=== PATIENT | female | born 1980 | race Caucasian/White ===

== ENCOUNTER 2016-11-14 20:41 | Emergency (ER) | payer OTHER ==
[~2016-11-14] VITALS: Ht 174 cm; Wt 59.2 kg
[~2016-11-14 20:41] MED LIST: APRITAB PO; DIFL150T PO; METR-1 PO; VALA1TAB PO
[2016-11-14 20:51] VITALS: BP 141/79; PULSE 104; RESP 18; TEMP 98.6; O2SAT 100
[2017-01-18] MEDS ORDERED: FAMV250T PO (16:11)
[2017-01-18] MEDS ORDERED: MACR100C2 PO (16:11)
[2017-01-19] MEDS ORDERED: ACYC400T PO (08:54)
== END 2016-11-14 22:08 | disposition left against medical advice (07) ==
LOC: PHED 20:41
DX: N93.9 Abnormal uterine and vaginal bleeding, unspecified (principal); Z53.21 Procedure and treatment not carried out due to patient leaving prior to being seen by health care provider
CPT/HCPCS: 99281

== ENCOUNTER 2016-12-06 12:38 | Emergency (ER) | payer OTHER ==
[~2016-12-06] VITALS: Ht 170.2 cm; Wt 58.8 kg
[2016-12-06 12:49] VITALS: BP 141/72; PULSE 106; RESP 20; TEMP 98.7; O2SAT 97
--- NOTE | 2016-12-06 13:14 | PD ---
HPI Chief Complaint: Skin Problem Time Seen by Provider: 13:11 Travel History International Travel<30 days: No Contact w/Intl Traveler<30days: No Traveled to known affect area: No History of Present Illness HPI 36-year-old female presents to the ED for evaluation of pruritus of the hairline at the nape of the neck. Onset this morning. Patient states that she noticed multiple red bumps on her child and has been experiencing itching in the nape of the neck since. She states that they were at a friend's house yesterday who feeds many cats in the neighborhood. She thinks that her son's bumps may have come from there. She states that she took a shower before coming to the ED and that did not worsen or improve her symptoms. She denies skin lesions, headaches, fevers, cold symptoms, abdominal pain, nausea, vomiting. Denies chronic health problems, takes no daily medications. No treatment at home. PFSH Past Medical History Arthritis: No Asthma: No Autoimmune Disease: No Blood Disorders: No Anxiety: Yes Depression: Yes Heart Rhythm Problems: No Cancer: No Cardiovascular Problems: No High Cholesterol: No Chemotherapy: Yes Chest Pain: No Congestive Heart Failure: No COPD: No Cerebrovascular Accident: No Diabetes: No Diminished Hearing: No Endocrine: Yes Gastrointestinal Disorders: Yes GERD: No Genitourinary: Yes (Herpes) Headaches: No Hiatal Hernia: No Immune Disorder: No Implanted Vascular Access Dvce: Yes Kidney Stones: No Musculoskeletal: No Neurologic: No Psychiatric: Yes (depression, alcoholism ) Reproductive: No Respiratory: No Immunizations Current: Yes Migraines: No Radiation Therapy: No Renal Failure: No Seizures: No Shingles: No Sickle Cell Disease: No Sleep Apnea: No Thyroid Disease: No Ulcer: No Tetanus Vaccination: > 5 Years Influenza Vaccination: No ?: Unknown LMP: 2.5 weeks ago : 2 Para: 1 Miscarriage: 0 : 1 Past Surgical History Abdominal Surgery: No AICD: No Arteriovenous Shunt: No Body Medical Devices: BREAST IMPLANTS Cardiac Surgery: No Ear Surgery: No Endocrine Surgery: No Eye Surgery: No Gynecologic Surgery: No Insulin Pump: No Joint Replacement: No Oral Surgery: No Pacemaker: No Thoracic Surgery: No Other Surgery: Yes (BREAST AUGMENTATION) Social History Alcohol Use: Yes (Social) Tobacco Use: Yes Substance Use: No Allergies-Medications (Allergen,Severity, Reaction): Coded Allergies: Macrobid (Verified Allergy, Severe, 12/06/16) Bactrim (Verified Allergy, Unknown, 12/06/16) Codeine (Verified Allergy, Unknown, Hives, 12/06/16) Reported Meds & Prescriptions Reported Meds & Active Scripts Active No Active Prescriptions or Reported Medications Review of Systems Except as stated in HPI: all other systems reviewed are Neg Physical Exam Narrative GENERAL: Well-nourished, well-developed patient. SKIN: Warm and dry. A thorough survey of the skin reveals excoriations in the hairline at the nape of the neck. No other lesions noted. There is some mild bruising on the posterior aspect of the left thigh. Again no erythema, vesicles , or maculopapules noted. HEAD: Normocephalic. EYES: No scleral icterus. No injection or drainage. NECK: Supple, trachea midline. No JVD or lymphadenopathy. CARDIOVASCULAR: Regular rate and rhythm without murmurs, gallops, or rubs. RESPIRATORY: Breath sounds equal bilaterally. No accessory muscle use. GASTROINTESTINAL: Abdomen soft, non-tender, nondistended. MUSCULOSKELETAL: No cyanosis, or edema. BACK: Nontender without obvious deformity. No CVA tenderness. Data Data Last Documented VS Vital Signs Date Time Temp Pulse Resp B/P Pulse Ox O2 Delivery O2 Flow Rate FiO2 12/06/16 12:49 98.7 106 20 141/72 97 Orders Diphenhydramine (Benadryl) (12/06/16 13:30) MDM Medical Decision Making Medical Screen Exam Complete: Yes Emergency Medical Condition: Yes Differential Diagnosis pruritis versus insect bite versus contact dermatitis versus lice versus other Narrative Course 36-year-old female presents to the ED for evaluation of pruritus of the hairline at the nape of the neck. Onset this morning. Patient states that she noticed multiple red bumps on her child and has been experiencing itching in the nape of the neck since. She states that they were at a friend's house yesterday who feeds many cats in the neighborhood. She thinks that her son's bumps may have come from there. She denies skin lesions, headaches, fevers, cold symptoms, abdominal pain, nausea, vomiting. Vitals reviewed. Thorough evaluation of the skin reveals excoriations in the hairline of the posterior neck. No other lesions noted. There is some mild bruising on the posterior aspect of the left thigh. Again no erythema, vesicles, or maculopapules noted. I cursorily examined the patient's son skin. There are lesions consistent with bedbugs. Suspect her itching may be psychosomatic. She was administered 25 mg of Benadryl. She was instructed to continue Benadryl as needed for itching. She was cautioned not to use topical and oral Benadryl concurrently. She is instructed to follow-up with her primary care provider. She indicated understanding of instructions and is amenable to plan of care. She is stable and discharged home. Diagnosis Primary Impression: Generalized pruritus Referrals: Primary Care Physician Patient Instructions: General Instructions, Itchy Skin (ED) Additional Instructions: Rest, hydrate. Take cool showers to avoid worsening of itching. Take either Benadryl by mouth or apply topical Benadryl to areas that itch. Do not use both medications! Follow-up with the primary care provider. Return to the ED for any urgent or emergent medical condition. Scripts No Active Prescriptions or Reported Meds Disposition: 01 DISCHARGE HOME Condition: Stable Suzy Mcgowan Dec 06, 2016 13:14
[2016-12-06] MEDS ORDERED: diphenhydrAMINE HCL 25 MG CAP PO ONE (13:30)
[2017-01-18] MEDS ORDERED: MACR100C2 PO (16:11)
[2017-01-18] MEDS ORDERED: FAMV250T PO (16:11)
[2017-01-19] MEDS ORDERED: ACYC400T PO (08:54)
== END 2016-12-06 13:40 | disposition home or self-care (01) ==
LOC: PHEFT 12:38
DX: L29.8 Other pruritus (principal); Z72.0 Tobacco use; Z87.19 Personal history of other diseases of the digestive system; Z87.42 Personal history of other diseases of the female genital tract; Z86.59 Personal history of other mental and behavioral disorders
CPT/HCPCS: 99282

== ENCOUNTER 2017-09-29 11:08 | Emergency (ER) | payer OTHER ==
[~2017-09-29 11:08] MED LIST changes: +ACYC400T PO; -APRITAB PO; +CLIN2CRE5 VAGINAL; -DIFL150T PO; +FLUC150T PO; -METR-1 PO; -VALA1TAB PO
[2017-09-29 11:35] VITALS: BP 138/71; PULSE 110; RESP 18; TEMP 98.3; O2SAT 100
--- NOTE | 2017-09-29 11:59 | PD ---
HPI Chief Complaint: GI Complaint Time Seen by Provider: 11:37 Travel History International Travel<30 days: No Contact w/Intl Traveler<30days: No Traveled to known affect area: No History of Present Illness HPI 37yo F with PMH of anxiety presents to the ED with c/o pulling something out of her anus. Said she was in the shower and pull something that had eyes. Pt said she had nausea and vomiting only in the mornings for 2 months. Has chronic abdominal pain but nothing new. Started having nonbloody diarrhea today. Denies any fever, chest pain, sob, dysuria, hematuria, vaginal complaints, recent traveling. Said she stopped her anxiety medication a few days ago. PFSH Past Medical History Arthritis: No Asthma: No Autoimmune Disease: No Blood Disorders: No Anxiety: Yes Depression: Yes Heart Rhythm Problems: No Cancer: No Cardiovascular Problems: No High Cholesterol: No Chemotherapy: Yes Chest Pain: No Congestive Heart Failure: No COPD: No Cerebrovascular Accident: No Diabetes: No Diminished Hearing: No Endocrine: Yes Gastrointestinal Disorders: Yes GERD: No Genitourinary: Yes (Herpes) Headaches: No Hiatal Hernia: No Immune Disorder: No Implanted Vascular Access Dvce: Yes Kidney Stones: No Musculoskeletal: No Neurologic: No Psychiatric: Yes (depression, alcoholism ) Reproductive: No Respiratory: No Immunizations Current: Yes Migraines: No Radiation Therapy: No Renal Failure: No Seizures: No Shingles: No Sickle Cell Disease: No Sleep Apnea: No Thyroid Disease: No Ulcer: No ?: Not : 2 Para: 1 Miscarriage: 0 : 1 Past Surgical History Abdominal Surgery: No AICD: No Arteriovenous Shunt: No Body Medical Devices: BREAST IMPLANTS Cardiac Surgery: No Ear Surgery: No Endocrine Surgery: No Eye Surgery: No Gynecologic Surgery: No Insulin Pump: No Joint Replacement: No Oral Surgery: No Pacemaker: No Thoracic Surgery: No Other Surgery: Yes (BREAST AUGMENTATION) Social History Alcohol Use: Yes (Social) Tobacco Use: No Substance Use: No Allergies-Medications (Allergen,Severity, Reaction): Coded Allergies: nitrofurantoin (Unverified Allergy, Severe, 05/30/17) codeine (Unverified Allergy, Unknown, Hives, 05/30/17) sulfamethoxazole (Unverified Allergy, Unknown, 05/30/17) trimethoprim (Unverified Allergy, Unknown, 05/30/17) Reported Meds & Prescriptions Reported Meds & Active Scripts Active Ivermectin 3 Mg Tab 12 Mg PO ONCE 1 Days Keflex (Cephalexin) 500 Mg Cap 500 Mg PO Q12H 7 Days Acyclovir 400 Mg Tab 400 Mg PO TID Review of Systems Except as stated in HPI: all other systems reviewed are Neg Physical Exam Narrative GENERAL: 37yo F not in distress. SKIN: Focused skin assessment warm/dry. HEAD: Atraumatic. Normocephalic. CARDIOVASCULAR: Regular rate and rhythm. No murmur appreciated. RESPIRATORY: No accessory muscle use. Clear to auscultation. Breath sounds equal bilaterally. GASTROINTESTINAL: Abdomen soft, non-tender, nondistended. No rebound tenderness or guarding. RECTAL: There is nothing coming out of the anus. MUSCULOSKELETAL: No obvious deformities. No clubbing. No cyanosis. No edema. NEUROLOGICAL: Awake and alert. No obvious cranial nerve deficits. Motor grossly within normal limits. Normal speech. PSYCHIATRIC: Appropriate mood and affect; insight and judgment normal. Data Data Last Documented VS Vital Signs Date Time Temp Pulse Resp B/P (MAP) Pulse Ox O2 Delivery O2 Flow Rate FiO2 09/29/17 13:47 83 110/50 (70) 99 09/29/17 11:35 98.3 18 Orders Orders Complete Blood Count With Diff (09/29/17 11:51) Basic Metabolic Panel (Bmp) (09/29/17 11:51) Lipase (09/29/17 11:51) Ondansetron Inj (Zofran Inj) (09/29/17 12:00) Sodium Chlor 0.9% 1000 Ml Inj (Ns 1000 M (09/29/17 12:00) Ed Urine Pregnancytest Poc (09/29/17 11:51) Urinalysis - C+S If Indicated (09/29/17 11:51) Urine Culture (09/29/17 12:27) Ceftriaxone Inj (Rocephin Inj) (09/29/17 13:30) Labs Laboratory Tests Test 09/29/17 12:05 09/29/17 12:27 White Blood Count 3.4 TH/MM3 Red Blood Count 4.27 MIL/MM3 Hemoglobin 13.9 GM/DL Hematocrit 41.5 % Mean Corpuscular Volume 97.1 FL Mean Corpuscular Hemoglobin 32.6 PG Mean Corpuscular Hemoglobin Concent 33.6 % Red Cell Distribution Width 13.8 % Platelet Count 129 TH/MM3 Mean Platelet Volume 7.1 FL Neutrophils (%) (Auto) 60.0 % Lymphocytes (%) (Auto) 30.5 % Monocytes (%) (Auto) 7.6 % Eosinophils (%) (Auto) 0.9 % Basophils (%) (Auto) 1.0 % Neutrophils # (Auto) 2.0 TH/MM3 Lymphocytes # (Auto) 1.0 TH/MM3 Monocytes # (Auto) 0.3 TH/MM3 Eosinophils # (Auto) 0.0 TH/MM3 Basophils # (Auto) 0.0 TH/MM3 CBC Comment DIFF FINAL Differential Comment Blood Urea Nitrogen 11 MG/DL Creatinine 0.61 MG/DL Random Glucose 116 MG/DL Calcium Level 8.2 MG/DL Sodium Level 135 MEQ/L Potassium Level 3.7 MEQ/L Chloride Level 97 MEQ/L Carbon Dioxide Level 27.3 MEQ/L Anion Gap 11 MEQ/L Estimat Glomerular Filtration Rate 112 ML/MIN Lipase 166 U/L Urine Collection Type CLEAN CATCH Urine Color YELLOW Urine Turbidity CLEAR Urine pH 6.0 Urine Specific [place] 1.022 Urine Protein 100 mg/dL Urine Glucose (UA) NEG mg/dL Urine Ketones NEG mg/dL Urine Occult Blood TRACE Urine Nitrite POS Urine Bilirubin NEG Urine Leukocyte Esterase NEG Urine RBC 4-9 /hpf Urine WBC 0-2 /hpf Urine Squamous Epithelial Cells 0-5 /hpf Urine Bacteria FEW /hpf Microscopic Urinalysis Comment CULTURE INDICATED Urine Collection Time 12:27 MDM Medical Decision Making Medical Screen Exam Complete: Yes Emergency Medical Condition: Yes Differential Diagnosis Anxiety vs. pinworms vs. dehydration vs. Narrative Course 37yo F here with c/o pulling something out of her anus that may be a worm. Pt has no abdominal tenderness on exam and is well appearing. Said there is some pruritis in anal region Labs reviewed, WBC 3.4. H/H normal. Glucose 116. UA showed positive nitrite, given ceftriaxone 1gm IV. Pt given NS IVF and zofran and is no longer nauseous and tolerating PO. Urine negative. HR is now 83bpm. Will treat for UTI. Unsure if pt has intestinal parasites but given history, will prescribe a dose of albendazole. Diagnosis Primary Impression: UTI (urinary tract infection) Qualified Codes: N39.0 - Urinary tract infection, site not specified; R31.9 - Hematuria, unspecified Patient Instructions: General Instructions Departure Forms: Tests/Procedures Additional Instructions: Please follow up with your primary care physician in 3-7 days. Return to the ED if symptoms worsen. Med/Other Pt SpecificInfo: Prescription(s) given Scripts Albendazole (Albenza) 200 Mg Tab 400 MG PO ONCE for 1 Day, TAB 0 Refills Prov: Gayle Duval DO 09/29/17 Cephalexin (Keflex) 500 Mg Cap 500 MG PO Q12H for Infection for 7 Days, #14 CAP 0 Refills Prov: Gayle Duval DO 09/29/17 Disposition: 01 DISCHARGE HOME Condition: Stable Gayle Duval DO Sep 29, 2017 11:59
[2017-09-29] MEDS ORDERED: ONDANSETRON HCL 4 MG/2 ML VIAL IV PUSH ONE (12:00)
[2017-09-29] MEDS ORDERED: SODIUM CHLOR 0.9% 1000 ML INJ 1,000 ML IV ONE (12:00)
[2017-09-29 12:14] LABS: EOSINOPHIL % 0.9 % (0.0-4.0); HEMATOCRIT 41.5 % (35.0-46.0); HEMOGLOBIN 13.9 GM/DL (11.6-15.3); LYMPH % 30.5 % (9.0-44.0); MEAN CELL VOLUME 97.1 FL (80.0-100.0); MEAN CORPUSCULAR HEMOGLOBIN 32.6 PG (27.0-34.0); MEAN CORPUSCULAR HGB CONC 33.6 % (32.0-36.0); MEAN PLATELET VOLUME 7.1 FL (7.0-11.0); MONO % 7.6 % (0.0-8.0); MONOCYTE # 0.3 TH/MM3 (0-0.9); PLATELET COUNT 129 TH/MM3 (150-450); RED BLOOD COUNT 4.27 MIL/MM3 (4.00-5.30); RED CELL DISTRIBUTION WIDTH 13.8 % (11.6-17.2); WHITE BLOOD COUNT 3.4 TH/MM3 (4.0-11.0)
[2017-09-29 12:25] LABS: CALCIUM 8.2 MG/DL (8.5-10.1)
[2017-09-29 12:26] LABS: BICARBONATE 27.3 MEQ/L (21.0-32.0)
[2017-09-29 12:29] LABS: CREATININE 0.61 MG/DL (0.50-1.00)
[2017-09-29 12:49] LABS: BILIRUBIN, URINE NEG (NEG); BLOOD, URINE TRACE (NEG); GLUCOSE,URINE NEG (NEG); KETONE, URINE NEG (NEG); NITRITE,URINE POS (NEG); URINE LEUKOCYTE ESTERASE NEG (NEG)
[2017-09-29 13:16] LABS: URINE COLOR YELLOW (YELLW/STRAW); WBC, URINE 0-2 /hpf (0-5)
[2017-09-29 13:17] LABS: BACTERIA, URINE FEW /hpf; SQUAMOUS EPITHELIAL CELL URINE 0-5 /hpf (0-5)
[2017-09-29] MEDS ORDERED: cefTRIAXone INJ 1,000 MG in SODIUM CHLORIDE 0.9% INJ 100 ML IV ONE (13:30)
[2017-09-29 13:47] VITALS: BP 110/50; PULSE 83; O2SAT 99
[2017-09-29] MEDS ORDERED: CEPH-460 PO (14:32)
[2017-09-29] MEDS ORDERED: IVER5TAB PO (14:32)
[2017-09-29] MEDS ORDERED: ALBE200T PO (14:39)
== END 2017-09-29 15:07 | disposition home or self-care (01) ==
LOC: PHED 11:08
DX: N39.0 Urinary tract infection, site not specified (principal); R31.9 Hematuria, unspecified; B96.3 Hemophilus influenzae [H. influenzae] as the cause of diseases classified elsewhere
CPT/HCPCS: 80048; 81001; 83690; 84703; 85025; 87077; 87086; 87184; 96361; 96374; 96375; 99284; J0696; J2405; J7030

== ENCOUNTER 2018-02-08 19:02 | Emergency (ER) | payer OTHER ==
[~2018-02-08 19:02] MED LIST changes: +ALBE200T PO; +CEPH-460 PO; -CLIN2CRE5 VAGINAL; -FLUC150T PO
[2018-02-08 19:10] VITALS: BP 148/87; PULSE 113; RESP 20; TEMP 98.3; O2SAT 99
[2018-02-08] MEDS ORDERED: CEPH-460 PO (19:37)
--- NOTE | 2018-02-08 19:37 | PD ---
HPI Chief Complaint: Skin Problem Time Seen by Provider: 19:19 Travel History International Travel<30 days: No Contact w/Intl Traveler<30days: No Traveled to known affect area: No History of Present Illness HPI 38-year-old female reports pain swelling and paresthesias involving the index finger on the left side is radiation towards the elbow. It started suddenly couple hours prior to arrival. The patient has shrimp all day long every single day and believes she might have fisherman's disease. PFSH Past Medical History Arthritis: No Asthma: No Autoimmune Disease: No Blood Disorders: No Anxiety: Yes Depression: Yes Heart Rhythm Problems: No Cancer: No Cardiovascular Problems: No High Cholesterol: No Chemotherapy: Yes Chest Pain: No Congestive Heart Failure: No COPD: No Cerebrovascular Accident: No Diabetes: No Diminished Hearing: No Endocrine: Yes Gastrointestinal Disorders: Yes GERD: No Genitourinary: Yes (Herpes) Headaches: No Hiatal Hernia: No Immune Disorder: No Implanted Vascular Access Dvce: Yes Kidney Stones: No Musculoskeletal: No Neurologic: No Psychiatric: Yes (depression, alcoholism ) Reproductive: No Respiratory: No Immunizations Current: Yes Migraines: No Radiation Therapy: No Renal Failure: No Seizures: No Shingles: No Sickle Cell Disease: No Sleep Apnea: No Thyroid Disease: No Ulcer: No Tetanus Vaccination: < 5 Years ?: Unknown LMP: 01/07/18 : 2 Para: 1 Miscarriage: 0 : 1 Past Surgical History Abdominal Surgery: No AICD: No Arteriovenous Shunt: No Body Medical Devices: BREAST IMPLANTS Cardiac Surgery: No Ear Surgery: No Endocrine Surgery: No Eye Surgery: No Gynecologic Surgery: No Insulin Pump: No Joint Replacement: No Oral Surgery: No Pacemaker: No Thoracic Surgery: No Other Surgery: Yes (BREAST AUGMENTATION) Social History Alcohol Use: Yes (Social) Tobacco Use: Yes Substance Use: No Allergies-Medications (Allergen,Severity, Reaction): Coded Allergies: nitrofurantoin (Unverified Allergy, Severe, 05/30/17) codeine (Unverified Allergy, Unknown, Hives, 05/30/17) sulfamethoxazole (Unverified Allergy, Unknown, 05/30/17) trimethoprim (Unverified Allergy, Unknown, 05/30/17) Reported Meds & Prescriptions Reported Meds & Active Scripts Active Ibuprofen 800 Mg Tab 800 Mg PO Q8H PRN Keflex (Cephalexin) 500 Mg Cap 500 Mg PO Q8H Albenza (Albendazole) 200 Mg Tab 400 Mg PO ONCE 1 Days Keflex (Cephalexin) 500 Mg Cap 500 Mg PO Q12H 7 Days Acyclovir 400 Mg Tab 400 Mg PO TID Review of Systems General / Constitutional: No: Fever Eyes: No: Blurred Vision HENT: No: Rhinorrhea Cardiovascular: No: Tachycardia Physical Exam Narrative GENERAL: 38-year-old female pleasant well-nourished well-developed no acute distress on Vital Signs Date Time Temp Pulse Resp B/P (MAP) Pulse Ox O2 Delivery O2 Flow Rate FiO2 02/08/18 19:10 98.3 113 20 148/87 (107) 99 SKIN: Warm and dry. There is a minute, superficial, linear laceration overlying the radial aspect of left index finger. The remainder of the hand is essentially unremarkable. HEAD: Atraumatic. Normocephalic. CARDIOVASCULAR: Regular rate and rhythm. 2+ radial pulses bilaterally. RESPIRATORY: No accessory muscle use. Clear to auscultation. Breath sounds equal bilaterally. GASTROINTESTINAL: Abdomen soft, non-tender, nondistended. Hepatic and splenic margins not palpable. MUSCULOSKELETAL: Extremities without clubbing, cyanosis, or edema. No obvious deformities. NEUROLOGICAL: Awake and alert. No obvious cranial nerve deficits. Motor grossly within normal limits. Five out of 5 muscle strength in the arms and legs. Normal speech. PSYCHIATRIC: Appropriate mood and affect; insight and judgment normal. Data Data Last Documented VS Vital Signs Date Time Temp Pulse Resp B/P (MAP) Pulse Ox O2 Delivery O2 Flow Rate FiO2 02/08/18 19:10 98.3 113 20 148/87 (107) 99 Orders Orders Cephalexin (Keflex) (02/08/18 19:45) Acetamin-Hydrocod 325-5 Mg ([place] 5-325 (02/08/18 19:45) Ed Discharge Order (02/08/18 19:39) MDM Medical Decision Making Medical Screen Exam Complete: Yes Emergency Medical Condition: Yes Differential Diagnosis [place], scromboid, cellulitis, erysipelothrix infection Narrative Course Keflex script Diagnosis Primary Impression: Erysipelothrix infection Referrals: Primary Care Physician 2 days Med/Other Pt SpecificInfo: Prescription(s) given Scripts Ibuprofen (Ibuprofen) 800 Mg Tab 800 MG PO Q8H Y for Pain/Inflammation, #20 TAB 0 Refills Prov: Lee Starks MD 02/08/18 Cephalexin (Keflex) 500 Mg Cap 500 MG PO Q8H for Infection, #30 CAP 0 Refills Prov: Lee Starks MD 02/08/18 Disposition: 01 DISCHARGE HOME Condition: Stable Lee Starks MD Feb 08, 2018 19:37
[2018-02-08] MEDS ORDERED: IBUP1TAB7 PO (19:38)
[2018-02-08] MEDS ORDERED: ACETAMINOPHEN/HYDROcodone 325 MG/5 MG TAB PO ONE (19:45)
[2018-02-08] MEDS ORDERED: CEPHALEXIN MONOHYDRATE 500 MG CAP PO ONE (19:45)
== END 2018-02-08 20:06 | disposition home or self-care (01) ==
LOC: PHED 19:02
DX: A26 Erysipeloid (principal); F41.9 Anxiety disorder, unspecified; F32.9 Major depressive disorder, single episode, unspecified; Z79.899 Other long term (current) drug therapy; Z88.5 Allergy status to narcotic agent; Z88.2 Allergy status to sulfonamides; Z88.8 Allergy status to other drugs, medicaments and biological substances
CPT/HCPCS: 99283

== ENCOUNTER 2018-02-21 19:49 | Emergency (ER) | payer OTHER ==
[~2018-02-21 19:49] MED LIST changes: +IBUP1TAB7 PO
[2018-02-21 20:01] VITALS: BP 128/61; PULSE 104; RESP 20; TEMP 98.3; O2SAT 97
--- NOTE | 2018-02-21 20:44 | PD ---
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 Apparently it became more infected and she came to the ER at that time was put on Keflex and sent out she had allergic reaction to the Keflex was switched to doxycycline and she is taking about 5 days of doxycycline twice daily now she has developed tingling in her feet feeling like there is edema in her feet tingling in her hands. She denies nausea vomiting diarrhea no other GI symptoms. Denies pain in finger . Her main complaint is that her ankles are swelling and she doesnt feel well , SHe worries " staph could in her blood stream ", I reassure her she has no signs or symptoms of bacteremia , No fever , Labs sent to re- assure her. PFSH Past Medical History Arthritis: No Asthma: No Autoimmune Disease: No Blood Disorders: No Anxiety: Yes Depression: Yes Heart Rhythm Problems: No Cancer: No Cardiovascular Problems: No High Cholesterol: No Chemotherapy: Yes Chest Pain: No Congestive Heart Failure: No COPD: No Cerebrovascular Accident: No Diabetes: No Diminished Hearing: No Endocrine: Yes Gastrointestinal Disorders: Yes GERD: No Genitourinary: Yes (Herpes) Headaches: No Hiatal Hernia: No Immune Disorder: No Implanted Vascular Access Dvce: Yes Kidney Stones: No Musculoskeletal: No Neurologic: No Psychiatric: Yes (depression, alcoholism ) Reproductive: No Respiratory: No Immunizations Current: Yes Migraines: No Radiation Therapy: No Renal Failure: No Seizures: No Shingles: No Sickle Cell Disease: No Sleep Apnea: No Thyroid Disease: No Ulcer: No Tetanus Vaccination: < 5 Years ?: Unknown : 2 Para: 1 Miscarriage: 0 : 1 Past Surgical History Abdominal Surgery: No AICD: No Arteriovenous Shunt: No Body Medical Devices: BREAST IMPLANTS Cardiac Surgery: No Ear Surgery: No Endocrine Surgery: No Eye Surgery: No Gynecologic Surgery: No Insulin Pump: No Joint Replacement: No Oral Surgery: No Pacemaker: No Thoracic Surgery: No Other Surgery: Yes (BREAST AUGMENTATION) Social History Alcohol Use: Yes (Social) Tobacco Use: Yes Substance Use: No Allergies-Medications (Allergen,Severity, Reaction): Coded Allergies: nitrofurantoin (Unverified Allergy, Severe, 02/21/18) codeine (Unverified Allergy, Unknown, Hives, 02/21/18) sulfamethoxazole (Unverified Allergy, Unknown, 02/21/18) trimethoprim (Unverified Allergy, Unknown, 02/21/18) Reported Meds & Prescriptions Reported Meds & Active Scripts Active Vistaril (Hydroxyzine Pamoate) 25 Mg Cap 25 Mg PO TID PRN Hydrochlorothiazide 12.5 Mg Cap 12.5 Mg PO DAILY Ibuprofen 800 Mg Tab 800 Mg PO Q8H PRN Keflex (Cephalexin) 500 Mg Cap 500 Mg PO Q8H Albenza (Albendazole) 200 Mg Tab 400 Mg PO ONCE 1 Days Keflex (Cephalexin) 500 Mg Cap 500 Mg PO Q12H 7 Days Acyclovir 400 Mg Tab 400 Mg PO TID Physical Exam Narrative GENERAL: slightly anxious appearance SKIN: Warm and dry. HEAD: Atraumatic. Normocephalic. EYES: Pupils equal and round. No scleral icterus. No injection or drainage. ENT: No nasal bleeding or discharge. Mucous membranes pink and moist. NECK: Trachea midline. No JVD. CARDIOVASCULAR: Regular rate and rhythm. RESPIRATORY: No accessory muscle use. Clear to auscultation. Breath sounds equal bilaterally. GASTROINTESTINAL: Abdomen soft, non-tender, nondistended. Hepatic and splenic margins not palpable. MUSCULOSKELETAL: Extremities minimal edema to ankles only obvious when pressure applied and slightest pitting occurs bilateral . NEUROLOGICAL: Awake and alert. No obvious cranial nerve deficits. Motor grossly within normal limits. Five out of 5 muscle strength in the arms and legs. Normal speech. PSYCHIATRIC: Appropriate mood and affect; insight and judgment normal. Data Data Last Documented VS Orders Orders Complete Blood Count With Diff (02/21/18 20:40) Comprehensive Metabolic Panel (02/21/18 20:40) Hydrochlorothiazide (Microzide) (02/21/18 20:45) Hydroxyzine Hcl (Atarax) (02/21/18 20:45) Ed Discharge Order (02/21/18 22:51) Labs Laboratory Tests Test 02/21/18 20:51 White Blood Count 4.1 TH/MM3 Red Blood Count 3.48 MIL/MM3 Hemoglobin 11.0 GM/DL Hematocrit 33.3 % Mean Corpuscular Volume 95.8 FL Mean Corpuscular Hemoglobin 31.5 PG Mean Corpuscular Hemoglobin Concent 32.9 % Red Cell Distribution Width 15.2 % Platelet Count 91 TH/MM3 Mean Platelet Volume 7.2 FL Neutrophils (%) (Auto) 56.4 % Lymphocytes (%) (Auto) 34.6 % Monocytes (%) (Auto) 6.7 % Eosinophils (%) (Auto) 1.7 % Basophils (%) (Auto) 0.6 % Neutrophils # (Auto) 2.3 TH/MM3 Lymphocytes # (Auto) 1.4 TH/MM3 Monocytes # (Auto) 0.3 TH/MM3 Eosinophils # (Auto) 0.1 TH/MM3 Basophils # (Auto) 0.0 TH/MM3 CBC Comment AUTO DIFF Differential Comment AUTO DIFF CONFIRMED Platelet Estimate LOW Platelet Morphology Comment NORMAL Blood Urea Nitrogen 12 MG/DL Creatinine 0.47 MG/DL Random Glucose 101 MG/DL Total Protein 6.3 GM/DL Albumin 2.8 GM/DL Calcium Level 8.4 MG/DL Alkaline Phosphatase 223 U/L Aspartate Amino Transf (AST/SGOT) 278 U/L Alanine Aminotransferase (ALT/SGPT) 115 U/L Total Bilirubin 0.9 MG/DL Sodium Level 138 MEQ/L Potassium Level 3.3 MEQ/L Chloride Level 104 MEQ/L Carbon Dioxide Level 24.4 MEQ/L Anion Gap 10 MEQ/L Estimat Glomerular Filtration Rate 150 ML/MIN MDM Medical Decision Making Medical Screen Exam Complete: Yes Emergency Medical Condition: Yes Medical Record Reviewed: Yes Differential Diagnosis Patient is complaining of tingling in her feet tingling in her hands that she thinks is secondary to doxycycline she reports Keflex gave her an allergic reaction her doctor switched her doxycycline which she is taken 5 days twice daily in the finger that she was taking it for initially is completely healed she has been on antibiotics for over 7 days no fever no redness no swelling to the area differential diagnosis includes mild allergic reaction possibly hypersensitivity versus anxiety Narrative Course Blood work does not have any elevated white count and her finger is completely normal I do not think she needs to continue antibiotics and told her DC the doxycycline I check her labs white count is 4 I give her Atarax and the very small dose of Hydrea chlorothiazide and told to elevate her feet which have minimal edema 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 I will give her 5 days of 12.5 hydrochlorothiazide and just elevate her feet at night follow -up with her outpatient doctor Diagnosis Primary Impression: Drug reaction Qualified Codes: T88.7XXA - Unspecified adverse effect of drug or medicament, initial encounter Patient Instructions: General Instructions, Leg Edema (ED) Scripts Hydroxyzine Pamoate (Vistaril) 25 Mg Cap 25 MG PO TID Y for ANXIETY, #10 CAP 0 Refills Prov: Steve Palmer MD 02/21/18 Hydrochlorothiazide (Hydrochlorothiazide) 12.5 Mg Cap 12.5 MG PO DAILY, #7 CAP 0 Refills Prov: Steve Palmer MD 02/21/18 Steve Palmer MD February 21, 2018 20:44
[2018-02-21] MEDS ORDERED: hydrOXYzine HCL 10 MG TAB PO ONE (20:45)
[2018-02-21] MEDS ORDERED: HYDROCHLOROTHIAZIDE 12.5 MG CAP PO ONE (20:45)
[2018-02-21 21:03] LABS: AUTOMATED NEUTROPHIL # 2.3 TH/MM3 (1.8-7.7); BASOPHIL % 0.6 % (0.0-2.0); EOSINOPHIL # 0.1 TH/MM3 (0-0.4); EOSINOPHIL % 1.7 % (0.0-4.0); HEMATOCRIT 33.3 % (35.0-46.0); LYMPH % 34.6 % (9.0-44.0); LYMPHOCYTE # 1.4 TH/MM3 (1.0-4.8); MEAN CELL VOLUME 95.8 FL (80.0-100.0); MEAN CORPUSCULAR HEMOGLOBIN 31.5 PG (27.0-34.0); MEAN CORPUSCULAR HGB CONC 32.9 % (32.0-36.0); MEAN PLATELET VOLUME 7.2 FL (7.0-11.0); MONO % 6.7 % (0.0-8.0); MONOCYTE # 0.3 TH/MM3 (0-0.9); NEUT % 56.4 % (16.0-70.0); PLATELET COUNT 91 TH/MM3 (150-450); RED BLOOD COUNT 3.48 MIL/MM3 (4.00-5.30); RED CELL DISTRIBUTION WIDTH 15.2 % (11.6-17.2); WHITE BLOOD COUNT 4.1 TH/MM3 (4.0-11.0)
[2018-02-21 21:14] LABS: CHLORIDE 104 MEQ/L (98-107); SODIUM (NA) 138 MEQ/L (136-145)
[2018-02-21 21:17] LABS: CALCIUM 8.4 MG/DL (8.5-10.1)
[2018-02-21 21:18] LABS: ALBUMIN 2.8 GM/DL (3.4-5.0); BICARBONATE 24.4 MEQ/L (21.0-32.0); BLOOD UREA NITROGEN 12 MG/DL (7-18); GLUCOSE,RANDOM 101 MG/DL (74-106)
[2018-02-21 21:21] LABS: ALT (GPT) 115 U/L (10-53); AST (GOT) 278 U/L (15-37); CREATININE 0.47 MG/DL (0.50-1.00); GLOMERULAR FILTRATION RATE 150 ML/MIN (>89)
[2018-02-21 21:22] LABS: TOTAL BILIRUBIN ADULT 0.9 MG/DL (0.2-1.0)
[2018-02-21 21:23] LABS: TOTAL PROTEIN 6.3 GM/DL (6.4-8.2)
[2018-02-21 21:24] LABS: ALKALINE PHOSPHATASE 223 U/L (45-117)
[2018-02-21] MEDS ORDERED: VIST25CA PO (22:51)
[2018-02-21] MEDS ORDERED: HYDR12.57 PO (22:51)
[2018-02-21 23:02] VITALS: BP 142/84; PULSE 85; RESP 16; TEMP 98.2; O2SAT 100
== END 2018-02-21 23:08 | disposition home or self-care (01) ==
LOC: PHED 19:49
DX: T36.1X5A Adverse effect of cephalosporins and other beta-lactam antibiotics, initial encounter (principal); R20.2 Paresthesia of skin; F41.9 Anxiety disorder, unspecified; F32.9 Major depressive disorder, single episode, unspecified; Z72.0 Tobacco use; Z88.5 Allergy status to narcotic agent; Z88.2 Allergy status to sulfonamides; Z88.8 Allergy status to other drugs, medicaments and biological substances; Z79.899 Other long term (current) drug therapy
CPT/HCPCS: 80053; 85025; 99283